=== PATIENT | male | born 1990 | race African-American/Black ===

== ENCOUNTER 2017-02-05 22:06 | Emergency (ER) | payer OTHER ==
[2017-02-05 22:17] VITALS: BP 107/65
--- NOTE | 2017-02-05 22:46 | ED Physician Documentation ---
PD HPI LOWER EXT INJURY - Stated complaint Stated Complaint: RT FOOT INJ - Chief complaint Chief Complaint: Ext Problem - History obtained from History obtained from: Patient - History of Present Illness PD HPI LOW EXT INJURY LOCATION: Right, Foot Type of injury: Fall (landed directly onto heel, with pain then that is wrose today.) Timing - onset: Yesterday Timing - details: Abrupt onset, Still present Associated symptoms: Swelling. No: Weakness, Numbness Similar symptoms before: Has not had sx before Recently seen: Not recently seen Review of Systems Constitutional: denies: Fever, Chills Skin: denies: Rash, Abrasion (s), Laceration (s) Musculoskeletal: denies: Back pain Neurologic: denies: Focal weakness, Numbness PD PAST MEDICAL HISTORY - Past Medical History Cardiovascular: None Respiratory: None Neuro: None Musculoskeletal: None - Allergies Allergies/Adverse Reactions: Allergies Allergy/AdvReac Type Severity Reaction Status Date / Time No Known Drug Allergies Allergy Verified 02/05/17 22:17 PD ED PE NORMAL - Vitals Vital signs reviewed: Yes - General General: Alert and oriented X 3, No acute distress, Well developed/nourished - Derm Derm: Normal color, Warm and dry - Extremities Extremities: Other (heel posteriorly and plantar with focal tenderness. No swelling. Achilles not tender and is firm/intact. ) - Neuro Neuro: Alert and oriented X 3, No motor deficit, No sensory deficit Results - Vitals Vitals: Oxygen O2 Source Room air - Rads (name of study) foot with dedicated heel Radiology: Prelim report reviewed, EMP read contemporaneously (no fractures) PD MEDICAL DECISION MAKING - ED course Complexity details: reviewed results (no fractures), considered differential, d/ w patient Departure - Departure Disposition: 01 Home, Self Care Clinical Impression: Contusion of right heel Qualifiers: Encounter type: initial encounter Qualified Code(s): S90.31XA - Contusion of right foot, initial encounter Accidental fall Qualifiers: Encounter type: initial encounter Qualified Code(s): W19.XXXA - Unspecified fall, initial encounter Condition: Stable Record reviewed to determine appropriate education?: Yes Instructions: ED Contusion Foot Follow-Up: IAN Woodson [Provider Group] Comments: Ibuprofen 600 mg three times daily, and add Tylenol as needed for pains. Crutches as needed for comfort. The heel looks okay on xray, so just bruised and should get better over several days to a week. Recheck if not improved over the next 3-5 days. Discharge Date/Time: 02/05/17 23:30
[2017-02-05] MEDS ORDERED: ACETAMINOPHEN 325 MG TABLET PO STA (22:56)
[2017-02-05] MEDS ORDERED: IBUPROFEN 800 MG TABLET PO STA (22:56)
--- NOTE | 2017-02-05 22:56 | XRAY Preliminary Report ---
Exam: XR Foot 3 View RT IMPRESSION: Normal foot radiography. [facility] SITE ID: [id number]
--- NOTE | 2017-02-05 22:58 | XRAY Report ---
EXAM: RIGHT FOOT RADIOGRAPHY EXAM DATE: 02/05/2017 10:40 PM. CLINICAL HISTORY: Fall from height, landing on foot. Injury. Unable to bear weight. COMPARISON: None. TECHNIQUE: 3 views. FINDINGS: Bones: Normal. No fractures or bone lesions. Joints: Normal. No subluxations. Soft Tissues: Normal. No soft tissue swelling. IMPRESSION: Normal foot radiography. [facility] Referring Provider Line: [phone] SITE ID: [id number]
[2017-02-05] MEDS ORDERED: IBUPROFEN 800 MG TABLET PO ONE (23:19)
[2017-02-05] MEDS ORDERED: ACETAMINOPHEN 325 MG TABLET PO ONE (23:19)
--- NOTE | 2017-02-05 23:30 | XRAY Preliminary Report ---
Exam: XR Calcaneus RT IMPRESSION: Normal calcaneus radiography. [facility] SITE ID: [id number]
--- NOTE | 2017-02-05 23:32 | XRAY Report ---
EXAM: RIGHT CALCANEUS RADIOGRAPHY EXAM DATE: 02/05/2017 11:19 PM. CLINICAL HISTORY: Foot/heel injury after jumping yesterday. Unable to bear weight. COMPARISON: None. TECHNIQUE: 2 views. FINDINGS: Bones: Normal. No fractures or bone lesions. Joints: Normal. No subluxations. Soft Tissues: Normal. No soft tissue swelling. IMPRESSION: Normal calcaneus radiography. [facility] Referring Provider Line: [phone] SITE ID: [id number]
== END 2017-02-05 23:30 | disposition home or self-care (01) ==
LOC: ED 22:06
DX: S90.31XA Contusion of right foot, initial encounter (principal); W01.0XXA Fall on same level from slipping, tripping and stumbling without subsequent striking against object, initial encounter
CPT/HCPCS: 73630; 73650; 99283; A9270

== ENCOUNTER 2017-05-07 14:52 | Outpatient (CLI) | payer OTHER | END 2017-05-07 14:53 | disposition home or self-care (01) | LOC: SC 14:52 | PROVIDERS: ATTEND Nurse Practitioner Family | DX: G47.00 Insomnia, unspecified (principal); R06.83 Snoring; R06.81 Apnea, not elsewhere classified; G47.26 Circadian rhythm sleep disorder, shift work type | CPT/HCPCS: 99203; 99212 ==

== ENCOUNTER 2017-11-07 10:47 | Outpatient (CLI) | payer OTHER | END 2017-11-07 10:48 | disposition home or self-care (01) | LOC: SC 10:47 | PROVIDERS: ATTEND Nurse Practitioner Family | DX: G47.30 Sleep apnea, unspecified (principal); G47.10 Hypersomnia, unspecified; R06.83 Snoring; G47.9 Sleep disorder, unspecified | CPT/HCPCS: 99212; 99214 ==

== ENCOUNTER 2018-07-17 08:37 | Outpatient (CLI) | payer OTHER | END 2018-07-17 08:38 | disposition home or self-care (01) | LOC: SC 08:37 | PROVIDERS: ATTEND Nurse Practitioner Family | DX: G47.30 Sleep apnea, unspecified (principal); G47.8 Other sleep disorders; R06.83 Snoring | CPT/HCPCS: 99212; 99214 ==

== ENCOUNTER 2018-08-27 19:30 | Outpatient (CLI) | payer OTHER | END 2018-08-27 23:59 | disposition home or self-care (01) | LOC: SC 19:30 | PROVIDERS: ATTEND Internal Medicine Pulmonary Disease | DX: R06.81 Apnea, not elsewhere classified (principal); G47.10 Hypersomnia, unspecified; R06.83 Snoring; E66.9 Obesity, unspecified; Z68.31 Body mass index [BMI] 31.0-31.9, adult | CPT/HCPCS: 95806 ==